=== PATIENT | male | born 1975 | race Caucasian/White ===

== ENCOUNTER 2018-12-13 10:31 | Outpatient (CLI) | payer MEDICAID, SELFPAY ==
[2018-12-13 11:22] LABS: HCT 46.8 % (40.0-50.0); HGB 16.1 g/dL (13.5-17.5); Mean Corp. HGB Concentration 34.4 g/dL (32.0-36.0); Mean Corpuscular Hemoglobin 32.5 pg (27.0-33.0); Mean Corpuscular Volume 94.4 fL (80-95); Mean Platelet Volume 10.4 fL (8.0-11.0); Platelet Count 207 x1000/uL (130-400); RBC 4.96 m/cumm (4.50-6.00); RBC Distribution Width 11.9 % (11.8-14.1); White Blood Cell Count 5.11 k/cumm (4.4-10.8)
[2018-12-13 12:13] LABS: Albumin 3.8 g/dL (3.4-5.0); Alkaline Phosphatase 76 U/L (46-116); Anion Gap 11.1 mmol/L (3-11); BUN 18 mg/dL (7-18); Bilirubin, Total 1.2 mg/dL (0.2-1.0); CO2 27.9 mmol/L (21.0-32.0); CREATININE 1.25 mg/dL (0.70-1.30); Calcium 9.1 mg/dL (8.5-10.1); Chloride 97 mmol/L (98-107); Cholesterol 333 mg/dL (50-200); Glucose 127 mg/dL (70-100); HDL Cholesterol 57 mg/dL (40-60); LDL CHOLESTEROL 99 mg/dL (<100); Potassium 4.4 mmol/L (3.5-5.1); Sodium 136 mmol/L (136-145); Total Protein 7.7 g/dL (6.4-8.2)
[2018-12-13 12:52] LABS: ALT 35 U/L (12-78); AST 47 U/L (15-37); Triglyceride 1621 mg/dL (30-150)
[2018-12-13 15:48] LABS: Hemoglobin A1C 6.1 % (4.5-6.2)
== END 2018-12-13 10:51 ==
PROVIDERS: PCP Family Medicine; Visit Provider Family Medicine
DX: Z00.00 Encounter for general adult medical examination without abnormal findings (principal); E78.1 Pure hyperglyceridemia; R73.9 Hyperglycemia, unspecified
CPT/HCPCS: 36415; 80053; 80061; 83721; 85027; 83036

== ENCOUNTER 2019-05-18 14:54 | Emergency (ER) | payer MEDICAID, SELFPAY ==
[2019-05-18 14:56] VITALS: BP 147/92; PULSE 110; RESP 16; TEMP 36.6; O2SAT 98
--- NOTE | 2019-05-18 15:24 | W.ED.GENAD ---
Discharge Plan Disposition Patient Disposition: HOME Discharge Details Chief Complaint: Nk/Back Pain Clinical Impression: Acute neck pain Primary Care Provider: Aron Cheney ED Provider: Guanaco Pack Home Meds and New Rx's Prescriptions: New cyclobenzaprine 5 mg tablet 5 mg PO BID PRN (Reason: muscle spasm) Qty: 10 RF: 0 No Action multivitamin 1 EACH capsule 1 ea PO DAILY RF: 0 Discharge Instructions Instructions: Neck Pain (ED) Additional Instructions: No more chiropractic manipulations of your spine until cleared by your primary care physician. Please take ibuprofen over the counter. Take 600mg by mouth every 6 hours as needed for pain. Please take acetaminophen (tylenol) - 650mg every 6 hours by mouth as needed for pain. Please contact your primary care physician to arrange follow-up. Return to the ER for any worsening or new concerning symptoms. Referrals: Aron Cheney [Primary Care Provider] - Discharge Data Discharge Date/Time-TO BE ENTERED AT DEPARTURE: 05/18/19 18:55 Medical Decision Making 330p: 43-year-old male presents 2 weeks after chiropractic neck manipulation with persistent and worsening posterior and lateral neck pain despite attempted re-manipulation and adjustment. History concerning for increased pain with swallowing and also left facial paresthesia. Patient does note slightly diminished sensation to light touch left face compared to right. Patient had negative x-ray performed in clinic. Concern for cervical fracture versus less likely arterial injury. Plan to obtain CT imaging. 635p: CT of the cervical spine interpreted by radiology: No acute findings CTA of the neck interpreted by radiology: No acute findings. Results discussed with patient. Usual and customary discharge instructions were provided. I advised the patient should not have any further chiropractic manipulation until cleared by his primary care physician patient was encouraged to follow-up with his primary care physician and return for any worsening or new concerning symptoms. HPI General Mode of arrival: ambulatory. Date/Time Provider Initiated Documentation: 05/18/19 15:07. Limitations to Documentation: no limitations. Information obtained by: patient. HPI Narrative: 43-year-old male presents with chief complaint of neck pain. Patient notes approximately 2 weeks ago he saw his chiropractor for manipulation of his neck. He notes that during neck manipulation and adjustment he had sudden onset of neck pain. Pain is persisted and worsened over the past 2 weeks. He returned to the chiropractor 2 more times and had additional adjustments done that has not helped his symptoms. Patient notes that now he has some pain when he swallowing and when he rotates his head to the right. Pain is moderate to severe. He also notes some tingling of his left face. No associated weakness. No headache. Related Data Home Medications Medication Instructions Recorded Confirmed multivitamin 1 ea PO DAILY 12/22/16 05/18/19 cyclobenzaprine 5 mg PO BID PRN #10 tab 05/18/19 Previous Rx's Medication Instructions Recorded cyclobenzaprine 5 mg PO BID PRN #10 tab 05/18/19 Allergies Allergy/AdvReac Type Severity Reaction Status Date / Time No Known Allergies Allergy Unverified 05/18/19 15:02 General Stated Complaint: Nk/Back Pain JOSLYN: 4 Review of Systems Review of Systems All systems reviewed & are unremarkable except as noted in HPI and below Constitutional Denies headache(s) ENT Denies dizziness and Denies headache(s) Cardiovascular Denies syncope Musculoskeletal Reports as per HPI and Denies tingling Neurologic Denies dizziness, Denies syncope, Denies headache(s), Denies focal weakness, Denies tingling and Reports paresthesias (see hpi) [facility] Surgical History Procedures Tonsillectomy Family History Mother Heart disease Neoplasm Stroke Father No problems noted. Sister No problems noted. Brother No problems noted. Grandmother No problems noted. Social History Smoking/Tobacco Use Status: Former Tobacco Use Second Hand Exposure: Yes Alcohol Intake: current Alcohol Intake frequency: 0-2 drinks per day Alcohol type: wine and hard liquor Substance use type: does not use Caregiver/Support person: No Household members: spouse and family Housing: house Pets and animals: Yes Pets and animals: cat(s) Sexually active: Yes Do you think of yourself as: straight/heterosexual Current gender identity: male What is your relationship status?: How often do you talk on the phone with friends or family?: three or more times per week How often do you get together with friends or relatives?: once per week How often do you attend temple or catholic services?: 4 or more times per year Do you belong to any clubs or organized social groups?: no Panel score (0-1 are the most socially isolated patients): 3 What type of physical activity do you participate in: walking Duration: 15-30 minutes/day Frequency: daily Brittany/Restorationist: Johovah Witness Special brittany needs: Yes (no blood) Do you feel safe at home: Yes Do you feel safe in your relationship?: Yes Exam Const General: cooperative and no acute distress [facility] Head: normocephalic and atraumatic Mouth: moist mucous membranes Eyes Conjunctivae: normal conjunctivae Sclera: normal sclerae EOM: EOM intact bilaterally Neck Neck: trachea midline, supple, tender (Left lateral and posterior) and other (Pain in left neck when he rotates rt) Resp Auscultation: clear to auscultation bilaterally, no rales, no rhonchi and no wheezes Cardio Jugular venous pressure: no JVD Rate: regular rate and not tachycardic Rhythm: regular rhythm GI Palpation: soft, not firm, no guarding, no masses, not rigid and nontender Skin General skin exam: no rashes or lesions noted Neuro General: alert, awake, oriented x3 and tone normal Cranial Nerves: PERRL, EOM intact bilaterally, facial strength normal, tongue midline, able to elevate shoulders bilaterally and other (Patient notes diminished sensation left face to light touch) Cognition: normal cognition Speech: speech normal Gait: normal gait Motor: muscle tone normal throughout and strength 5/5 throughout Sensory Exam: other (See face above otherwise sensation intact bilateral upper and lower ext) Course Vital Signs Temperature 36.6 C 05/18/19 14:56 Pulse 110 H 05/18/19 14:56 Respiratory Rate 16 05/18/19 14:56 Blood Pressure 147/92 H 05/18/19 14:56 Pulse Oximetry 98 05/18/19 14:56 Temperature 36.6 C 05/18/19 14:56 Temperature Source Skin 05/18/19 14:56 Pulse 110 H 05/18/19 14:56 Respiratory Rate 16 05/18/19 14:56 Respiratory Effort Non-Labored 05/18/19 15:00 Blood Pressure 147/92 H 05/18/19 14:56 Blood Pressure Position Sitting 05/18/19 14:56 Pulse Oximetry 98 05/18/19 14:56 Oxygen Delivery Method Room Air 05/18/19 14:56 Oxygen Flow Rate 0 05/18/19 14:56 Pain Level 8 05/18/19 14:56
--- NOTE | 2019-05-18 15:28 | ED.GENADUL_ITS ---
Discharge Plan Disposition Patient Disposition: HOME Discharge Details Chief Complaint: Nk/Back Pain Clinical Impression: Acute neck pain Primary Care Provider: Aron Cheney ED Provider: Guanaco Pack Home Meds and New Rx's Prescriptions: New cyclobenzaprine 5 mg tablet 5 mg PO BID PRN (Reason: muscle spasm) Qty: 10 RF: 0 No Action multivitamin 1 EACH capsule 1 ea PO DAILY RF: 0 Discharge Instructions Instructions: Neck Pain (ED) Additional Instructions: No more chiropractic manipulations of your spine until cleared by your primary care physician. Please take ibuprofen over the counter. Take 600mg by mouth every 6 hours as needed for pain. Please take acetaminophen (tylenol) - 650mg every 6 hours by mouth as needed for pain. Please contact your primary care physician to arrange follow-up. Return to the ER for any worsening or new concerning symptoms. Referrals: Aron Cheney [Primary Care Provider] - Discharge Data Discharge Date/Time-TO BE ENTERED AT DEPARTURE: 05/18/19 18:55 Medical Decision Making 330p: 43-year-old male presents 2 weeks after chiropractic neck manipulation with persistent and worsening posterior and lateral neck pain despite attempted re-manipulation and adjustment. History concerning for increased pain with swallowing and also left facial paresthesia. Patient does note slightly diminished sensation to light touch left face compared to right. Patient had negative x-ray performed in clinic. Concern for cervical fracture versus less likely arterial injury. Plan to obtain CT imaging. 635p: CT of the cervical spine interpreted by radiology: No acute findings CTA of the neck interpreted by radiology: No acute findings. Results discussed with patient. Usual and customary discharge instructions were provided. I advised the patient should not have any further chiropractic manipulation until cleared by his primary care physician patient was encouraged to follow-up with his primary care physician and return for any worsening or new concerning symptoms. HPI General Mode of arrival: ambulatory . Date/Time Provider Initiated Documentation: 05/18/19 15:07 . Limitations to Documentation: no limitations . Information obtained by: patient . HPI Narrative: 43-year-old male presents with chief complaint of neck pain. Patient notes approximately 2 weeks ago he saw his chiropractor for manipulation of his neck. He notes that during neck manipulation and adjustment he had sudden onset of neck pain. Pain is persisted and worsened over the past 2 weeks. He returned to the chiropractor 2 more times and had additional adjustments done that has not helped his symptoms. Patient notes that now he has some pain when he swallowing and when he rotates his head to the right. Pain is moderate to severe. He also notes some tingling of his left face. No associated weakness. No headache. Related Data Home Medications Medication Instructions Recorded Confirmed multivitamin 1 ea PO DAILY 12/22/16 05/18/19 cyclobenzaprine 5 mg PO BID PRN #10 tab 05/18/19 Previous Rx's Medication Instructions Recorded cyclobenzaprine 5 mg PO BID PRN #10 tab 05/18/19 Allergies Allergy/AdvReac Type Severity Reaction Status Date / Time No Known Allergies Allergy Unverified 05/18/19 15:02 General Stated Complaint: Nk/Back Pain JOSLYN: 4 Review of Systems Review of Systems All systems reviewed & are unremarkable except as noted in HPI and below Constitutional Denies headache(s) ENT Denies dizziness and Denies headache(s) Cardiovascular Denies syncope Musculoskeletal Reports as per HPI and Denies tingling Neurologic Denies dizziness, Denies syncope, Denies headache(s), Denies focal weakness, Denies tingling and Reports paresthesias (see hpi) [facility] Surgical History Procedures Tonsillectomy Family History Mother Heart disease Neoplasm Stroke Father No problems noted. Sister No problems noted. Brother No problems noted. Grandmother No problems noted. Social History Smoking/Tobacco Use Status: Former Tobacco Use Second Hand Exposure: Yes Alcohol Intake: current Alcohol Intake frequency: 0-2 drinks per day Alcohol type: wine and hard liquor Substance use type: does not use Caregiver/Support person: No Household members: spouse and family Housing: house Pets and animals: Yes Pets and animals: cat(s) Sexually active: Yes Do you think of yourself as: straight/heterosexual Current gender identity: male What is your relationship status?: How often do you talk on the phone with friends or family?: three or more times per week How often do you get together with friends or relatives?: once per week How often do you attend hinduism or yarsanism services?: 4 or more times per year Do you belong to any clubs or organized social groups?: no Panel score (0-1 are the most socially isolated patients): 3 What type of physical activity do you participate in: walking Duration: 15-30 minutes/day Frequency: daily Brittany/Mosque: Johovah Witness Special brittany needs: Yes (no blood) Do you feel safe at home: Yes Do you feel safe in your relationship?: Yes Exam Const General: cooperative and no acute distress [facility] Head: normocephalic and atraumatic Mouth: moist mucous membranes Eyes Conjunctivae: normal conjunctivae Sclera: normal sclerae EOM: EOM intact bilaterally Neck Neck: trachea midline, supple, tender (Left lateral and posterior) and other (Pain in left neck when he rotates rt) Resp Auscultation: clear to auscultation bilaterally, no rales, no rhonchi and no wheezes Cardio Jugular venous pressure: no JVD Rate: regular rate and not tachycardic Rhythm: regular rhythm GI Palpation: soft, not firm, no guarding, no masses, not rigid and nontender Skin General skin exam: no rashes or lesions noted Neuro General: alert, awake, oriented x3 and tone normal Cranial Nerves: PERRL, EOM intact bilaterally, facial strength normal, tongue midline, able to elevate shoulders bilaterally and other (Patient notes diminished sensation left face to light touch) Cognition: normal cognition Speech: speech normal Gait: normal gait Motor: muscle tone normal throughout and strength 5/5 throughout Sensory Exam: other (See face above otherwise sensation intact bilateral upper and lower ext) Course Vital Signs Temperature 36.6 C 05/18/19 14:56 Pulse 110 H 05/18/19 14:56 Respiratory Rate 16 05/18/19 14:56 Blood Pressure 147/92 H 05/18/19 14:56 Pulse Oximetry 98 05/18/19 14:56 Temperature 36.6 C 05/18/19 14:56 Temperature Source Skin 05/18/19 14:56 Pulse 110 H 05/18/19 14:56 Respiratory Rate 16 05/18/19 14:56 Respiratory Effort Non-Labored 05/18/19 15:00 Blood Pressure 147/92 H 05/18/19 14:56 Blood Pressure Position Sitting 05/18/19 14:56 Pulse Oximetry 98 05/18/19 14:56 Oxygen Delivery Method Room Air 05/18/19 14:56 Oxygen Flow Rate 0 05/18/19 14:56 Pain Level 8 05/18/19 14:56
[2019-05-18 15:54] LABS: Anion Gap 11.2 mmol/L (3-11); BUN 17 mg/dL (7-18); CO2 27.8 mmol/L (21.0-32.0); Calcium 8.7 mg/dL (8.5-10.1); Chloride 94 mmol/L (98-107); Glucose 190 mg/dL (70-100); Potassium 4.7 mmol/L (3.5-5.1); Sodium 133 mmol/L (136-145)
[2019-05-18 16:15] LABS: CREATININE 0.97 mg/dL (0.70-1.30)
--- NOTE | 2019-05-18 17:15 | DI.CT_ITS ---
SYMPTOM/DIAGNOSIS: NECK PAIN, THROBBING, LEFT FACIAL PARESTHESIA CT ANGIOGRAPHY NECK: CT angiography was performed with multi slice acquisition and multi planar and 3D reconstruction. There is no evidence of carotid or vertebral stenosis, occlusion or dissection. No plaque is seen. IMPRESSION: Negative CT angiography of the neck.
--- NOTE | 2019-05-18 17:15 | DI.CT_ITS ---
SYMPTOM/DIAGNOSIS: LEFT POST NECK PAIN, LEFT FACIAL PARESTHESIA CT CERVICAL SPINE: There is no evidence of fracture or subluxation. There are no significant degenerative changes. There is no visible disc herniation. There is no prevertebral soft tissue swelling. IMPRESSION: Negative CT of the cervical spine.
[2019-05-18] MEDS: Omnipaque 350 MG/ML 100 ML BTL IJ (17:17)
--- NOTE | 2019-05-18 17:32 | DI.VRAD_ITS ---
EXAM: CT Cervical Spine Without Contrast EXAM DATE/TIME: 05/18/2019 3:24 PM CLINICAL HISTORY: 43 years old, male; Patient HX: Left posterior neck pain, left facial paresthesia TECHNIQUE: Imaging protocol: Axial computed tomography images of the cervical spine without contrast. Coronal and sagittal reformatted images were created and reviewed. COMPARISON: No relevant prior studies available. FINDINGS: Vertebrae: No acute fracture. Normal alignment. Discs/Spinal canal/Neural foramina: No spinal stenosis. No neural foraminal narrowing. Soft tissues: Unremarkable. Lungs: Lung apices are normal. IMPRESSION: No acute findings. Dictated and Authenticated by: Jamey Rajput MD. Ordering:AYSE Blanc MD
--- NOTE | 2019-05-18 17:34 | DI.VRAD_ITS ---
EXAM: CT Angiography Neck With Contrast EXAM DATE/TIME: 05/18/2019 3:24 PM CLINICAL HISTORY: 43 years old, male; Other: Left posterior neck pain, throbbing, left facial pareshesia; Patient HX: Neck pain started after chiropractor manipulation TECHNIQUE: Imaging protocol: Axial computed tomographic angiography images of the neck with intravenous contrast using CT angiography protocol. Coronal and sagittal reformatted images were created and reviewed. 3D rendering: MIP reconstructed images were created and reviewed. Contrast material: OMNIPAQUE 350; Contrast volume: 85 ml; Contrast route: IV; COMPARISON: No relevant prior studies available. FINDINGS: VASCULATURE: Right common carotid artery: Unremarkable. No stenosis. No dissection or occlusion. Right internal carotid artery: Unremarkable. No stenosis in the extracranial segment. No dissection or occlusion. Right external carotid artery: Unremarkable. No occlusion or stenosis. Right vertebral artery: Unremarkable. No stenosis. No dissection or occlusion. Left common carotid artery: Unremarkable. No stenosis. No dissection or occlusion. Left internal carotid artery: Unremarkable. No stenosis in the extracranial segment. No dissection or occlusion. Left external carotid artery: Unremarkable. No stenosis. No dissection or occlusion. Left vertebral artery: Unremarkable. No stenosis. No dissection or occlusion. NECK: Bones/joints: No acute fracture. Soft tissues: Normal. No significant soft tissue swelling. IMPRESSION: No acute findings. COMMENT: Reference per NASCET criteria for degree of stenosis: Mild: less than 50% stenosis. Moderate: 50-69% stenosis. Severe: 70-94% stenosis. Near occlusion: 95-99% stenosis. Dictated and Authenticated by: Jamey Rajput MD. Ordering:AYSE Blanc MD
[2019-05-18 18:46] VITALS: BP 147/92; PULSE 110; RESP 16; TEMP 36.6; O2SAT 98
[2019-05-18 18:54] VITALS: BP 138/86; PULSE 96; RESP 16; O2SAT 98
== END 2019-05-18 18:55 | disposition home or self-care (01) ==
PROVIDERS: Emergency Provider Student in an Organized Health Care Education/Training Program; PCP Family Medicine
DX: M54.2 Cervicalgia (principal); R20.2 Paresthesia of skin
CPT/HCPCS: 36415; 70498; 80048; 99285; 72125; 99284; J3490

== ENCOUNTER 2020-08-08 09:37 | Outpatient (REF) | payer MEDICAID, SELFPAY ==
[2020-08-08 19:21] LABS: ALT 85 U/L (16-63); AST 72 U/L (15-37); Albumin 3.9 g/dL (3.4-5.0); Alkaline Phosphatase 94 U/L (46-116); Anion Gap 10.4 mmol/L (3-11); BUN 14 mg/dL (7-18); Bilirubin, Total 0.8 mg/dL (0.2-1.0); CO2 24.6 mmol/L (21.0-32.0); CREATININE 1.04 mg/dL (0.70-1.30); Chloride 102 mmol/L (98-107); Cholesterol 259 mg/dL (<200); Glucose 127 mg/dL (74-106); HDL Cholesterol 42 mg/dL (40-60); Potassium 4.1 mmol/L (3.5-5.1); Sodium 137 mmol/L (136-145); Triglyceride 749 mg/dL (<150)
[2020-08-08 19:39] LABS: LDL CHOLESTEROL 109 mg/dL (<100)
== END 2020-08-08 09:57 ==
LOC: NCHCN 09:37
PROVIDERS: Visit Provider Physician Assistant
DX: Z13.228 Encounter for screening for other metabolic disorders (principal); Z13.220 Encounter for screening for lipoid disorders; Z00.00 Encounter for general adult medical examination without abnormal findings
CPT/HCPCS: 80053; 80061; 83721

== ENCOUNTER 2020-10-08 11:41 | Emergency (ER) | payer MEDICAID, SELFPAY ==
[2020-10-08 11:45] VITALS: BP 123/79; PULSE 68; RESP 16; TEMP 36.4; O2SAT 98
--- NOTE | 2020-10-08 11:45 | DI.RAD_ITS ---
EXAM: XR HAND RT COMPLETE CLINICAL HISTORY: Thumb dislocation and reduced, pain. TECHNIQUE: 2D digital imaging was performed. COMPARISON: CR RIGHT HAND COMPLETE from 09/30/2010 FINDINGS: BONES: No acute fracture is present. No bony destructive lesion is seen. Periarticular spurring is se en at the interphalangeal joint of the thumb. JOINTS: No dislocation present. SOFT TISSUE: Normal. IMPRESSION: No acute fracture or dislocation. DATA REPOSITORY: RADIATION DOSE DELIVERED:
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
[2020-10-08 13:33] VITALS: BP 123/79; PULSE 68; RESP 16; TEMP 36.4; O2SAT 98
== END 2020-10-08 13:33 | disposition home or self-care (01) ==
PROVIDERS: Emergency Provider Physician Assistant; PCP Physician Assistant
DX: S69.91XA Unspecified injury of right wrist, hand and finger(s), initial encounter (principal); W20.8XXA Other cause of strike by thrown, projected or falling object, initial encounter
CPT/HCPCS: 29125; 99283; 73130

== ENCOUNTER 2020-10-16 01:00 | Outpatient (CLI) | payer MEDICAID, SELFPAY ==
--- NOTE | 2020-10-16 | DI.RAD_ITS ---
EXAM: XR LUMBAR SPINE COMPLETE CLINICAL HISTORY: LOW BACK PAIN,M54.5,PROGRESSIVE LLE RADICULOPATHY. TECHNIQUE: 2D digital imaging was performed. COMPARISON: No exams were available for comparison FINDINGS: BONES: No fracture or destructive lesion. Vertebral bodies are unremarkable. No facet hypertrophy nadiya ntified. Small endplate osteophytes are seen at L4-5 and L5-S1. DISKS: Mild disc space narrowing is seen at L4-5 and L5-S1. ALIGNMENT: Lumbar spinal alignment is within normal limits. No spondylolysis or spondylolisthesis. SOFT TISSUE: Normal. IMPRESSION: Mild degenerative changes in the lower lumbar spine as described above. DATA REPOSITORY: RADIATION DOSE DELIVERED:
--- NOTE | 2020-10-16 08:32 | DI.MRI_ITS ---
EXAM: MR LUMBAR SPINE WO CLINICAL HISTORY: CHRONIC LOW BACK PAIN,M54.5,PROGRESSIVE LLE RADICULOPATHY. TECHNIQUE: Multiplanar multisequence MRI of the Lumbar spine was performed. COMPARISON: CR XR LUMBAR SPINE COMPLETE from 10/16/2020 FINDINGS: Bones: The last intervertebral disc space is designated the L5/S1 level for the numbering purpose of this examination. The vertebral body heights are well maintained. Alignment is satisfactory. Mild d egenerative endplate signal changes are seen at L4-5 and L5-S1. Note is made of a hemangioma or fatty rest in the T12 vertebral body. Cord: The conus tip ends at the T12 level. It is of normal size and signal intensity. T12-L1: No disc herniations or bulges are present. No central spinal canal or neural foraminal stenos is. L1-2: No disc herniations or bulges are present. No central spinal canal or neural foraminal stenosis . L2-3: No disc herniations or bulges are present. No central spinal canal or neural foraminal stenosis . L3-4: No disc herniations or bulges are present. No central spinal canal or neural foraminal stenosis . L4-5: There is loss of signal of the disc. There is a diffuse disc bulge present. There is a small left paracentral disc herniation causing left lateral recess stenosis. There is a impression upon th e left L5 nerve root. Minimal narrowing of the central spinal canal is noted. No significant neural foraminal stenosis is present. L5-S1: There is a diffuse disc bulge. There is a small central disc herniation. No significant cent ral spinal canal stenosis or nerve root compression is noted. No neural foraminal stenosis is presen t. Soft tissues: The visualized SI joints and sacrum are well maintained. The paraspinal soft tissues ar e unremarkable. IMPRESSION: 1. At L4-L5, there is a left paracentral disc herniation causing left lateral recess stenosis and com pression upon the left L5 nerve root. 2. Small central disc herniation at L5-S1 but no significant central spinal canal stenosis or nerve r oot compression is present. 3. Degenerative disc disease at L4-5 and L5-S1. DATA REPOSITORY:
== END 2020-10-16 01:20 ==
PROVIDERS: PCP Physician Assistant; Visit Provider Physician Assistant
DX: M51.26 Other intervertebral disc displacement, lumbar region (principal); M47.816 Spondylosis without myelopathy or radiculopathy, lumbar region
CPT/HCPCS: 72110; 72148

== ENCOUNTER 2021-04-07 15:25 | Outpatient (REF) | payer MEDICAID, SELFPAY ==
[2021-04-07 16:22] LABS: Hemoglobin A1C 5.8 % (<5.7)
[2021-04-07 16:30] LABS: ALT 37 U/L (16-63); AST 22 U/L (15-37); Albumin 4.4 g/dL (3.4-5.0); Alkaline Phosphatase 91 U/L (46-116); Anion Gap 10.1 mmol/L (3-11); BUN 15 mg/dL (7-18); Bilirubin, Total 1.1 mg/dL (0.2-1.0); CO2 28.9 mmol/L (21.0-32.0); CREATININE 1.1 mg/dL (0.70-1.30); Calcium 9.6 mg/dL (8.5-10.1); Calculated LDL 125 mg/dL (<100); Chloride 103 mmol/L (98-107); Cholesterol 203 mg/dL (<200); Glucose 133 mg/dL (74-106); HDL Cholesterol 39 mg/dL (40-60); Potassium 4.2 mmol/L (3.5-5.1); Sodium 142 mmol/L (136-145); Total Protein 7.8 g/dL (6.4-8.2); Triglyceride 196 mg/dL (<150)
== END 2021-04-07 15:26 | disposition home or self-care (01) ==
LOC: NCHCN 15:25
PROVIDERS: PCP Physician Assistant; Visit Provider Physician Assistant
DX: R73.03 Prediabetes (principal); E78.1 Pure hyperglyceridemia
CPT/HCPCS: 80053; 80061; 83036

== ENCOUNTER 2021-06-04 11:24 | Outpatient (REF) | payer MEDICAID, SELFPAY ==
[2021-06-04 14:50] LABS: Abs Immature Grans 0.04 10^3/uL (0.0-0.06); Absolute Basophil Count 0.02 10^3/uL (0.0-0.2); Absolute Eosinophil Count 0.11 10^3/uL (0.0-0.7); Absolute Lymphocyte Count 0.74 10^3/uL (1.2-3.4); Absolute Monocyte Count 0.27 10^3/uL (0.1-0.8); Absolute Neutrophil Count 5.39 10^3/uL (1.2-6.7); Basophils % 0.3; Eosinophils % 1.7; HGB 12.2 g/dL (13.5-17.5); Immature Grans % 0.6; Lymphocytes % 11.3; MCH 29.6 pg (27.0-33.0); MCHC 31.3 % (32.0-36.0); MCV 94.7 fL (80-95); MPV 10.4 fL (8.0-11.0); Monocytes % 4.1; Nucleated RBC 0 %; Platelet Count 328 10^3/uL (130-400); RBC 4.12 10^6/uL (4.36-5.78); RDW 12.6 % (11.8-14.1); RDW-SD 43.8 fL; WBC 6.57 10^3/uL (4.4-10.8)
[2021-06-05 11:20] LABS: Lyme Ab w Rflx to Lyme Confirm Positive (Negative)
[2021-06-06 11:51] LABS: COVID-19 RT-PCR UVMMC Result Negative (Negative)
[2021-06-06 13:08] LABS: Anaplasma phagocytophilum Negative (Negative); B. miyamotoi PCR Negative (Negative); Babesia divergens/MO-1 Negative (Negative); Babesia duncani Negative (Negative); Babesia microti Negative (Negative); Ehrlichia chaffeensis Negative (Negative); Ehrlichia ewingii/canis Negative (Negative); Ehrlichia muris eauclairensis Negative (Negative)
[2021-06-09 15:41] LABS: IgG Band(s) p41; IgG Immunoblot Negative (Negative); IgM Band(s) p41; IgM Immunoblot Positive (Negative)
== END 2021-06-04 11:25 | disposition home or self-care (01) ==
LOC: LBN 11:24
PROVIDERS: PCP Physician Assistant; Visit Provider Physician Assistant Medical
DX: R50.9 Fever, unspecified (principal); J06.9 Acute upper respiratory infection, unspecified; Z20.822 Contact with and (suspected) exposure to COVID-19
CPT/HCPCS: 86617; 87798; U0003; 85025; 86618

== ENCOUNTER 2021-06-05 15:47 | Outpatient (CLI) | payer MEDICAID, SELFPAY ==
--- NOTE | 2021-06-05 | DI.RAD_ITS ---
Exam(s) XR CHEST 2V PA LATERAL EXAM: XR CHEST 2V PA LATERAL CLINICAL HISTORY: COUGH R05 TECHNIQUE: 2D digital imaging was performed. COMPARISON: CR CHEST 2 VIEWS PA,LAT from 02/01/2017 FINDINGS: MEDIASTINUM: Normal. HEART: Normal. PULMONARY VASCULATURE: Normal. LUNGS: Suboptimally inflated on the PA view but clear. PLEURAL SPACE: No pleural effusion or pneumothorax. BONE:Unremarkable for age. IMPRESSION: No acute abnormality. DATA REPOSITORY: RADIATION DOSE DELIVERED:
== END 2021-06-05 16:07 ==
PROVIDERS: PCP Physician Assistant; Visit Provider Physician Assistant Medical
DX: R05 Cough (principal)
CPT/HCPCS: 71046

== ENCOUNTER 2021-10-27 08:58 | Outpatient (REF) | payer MEDICAID, SELFPAY ==
[2021-10-27 14:46] LABS: Hemoglobin A1C 5.6 % (<5.7)
[2021-10-27 14:50] LABS: ALT 33 U/L (16-63); AST 24 U/L (15-37); Albumin 4.5 g/dL (3.4-5.0); Alkaline Phosphatase 81 U/L (46-116); Anion Gap 11.2 mmol/L (3-11); BUN 17 mg/dL (7-18); CO2 27.8 mmol/L (21.0-32.0); CREATININE 1.2 mg/dL (0.70-1.30); Calcium 9.6 mg/dL (8.5-10.1); Chloride 101 mmol/L (98-107); Cholesterol 298 mg/dL (<200); Glucose 129 mg/dL (74-106); HDL Cholesterol 65 mg/dL (40-60); Potassium 4.1 mmol/L (3.5-5.1); Sodium 140 mmol/L (136-145); Triglyceride 421 mg/dL (<150)
[2021-10-27 15:17] LABS: LDL CHOLESTEROL 154 mg/dL (<100)
[2021-10-27 15:26] LABS: Uric Acid 8.8 mg/dL (3.5-7.2)
== END 2021-10-27 08:59 | disposition home or self-care (01) ==
LOC: NCHCN 08:58
PROVIDERS: PCP Physician Assistant; Visit Provider Physician Assistant
DX: R73.03 Prediabetes (principal); E78.1 Pure hyperglyceridemia; M13.88 Other specified arthritis, other site
CPT/HCPCS: 80053; 80061; 83721; 83036; 84550

== ENCOUNTER 2022-11-05 15:39 | Outpatient (REF) | payer MEDICAID, SELFPAY ==
[2022-11-05 16:45] LABS: ALT 44 U/L (16-63); AST 37 U/L (15-37); Albumin 4.3 g/dL (3.4-5.0); Alkaline Phosphatase 74 U/L (46-116); Anion Gap 10.9 mmol/L (3-11); BUN 17 mg/dL (7-18); Bilirubin, Total 1.4 mg/dL (0.2-1.0); CO2 27.1 mmol/L (21.0-32.0); CREATININE 1.3 mg/dL (0.70-1.30); Calcium 9.2 mg/dL (8.5-10.1); Chloride 100 mmol/L (98-107); Cholesterol 265 mg/dL (<200); Estimated GFR 68.19 (mL/min/1.73m2); Glucose 150 mg/dL (74-106); HDL Cholesterol 50 mg/dL (40-60); Potassium 4.2 mmol/L (3.5-5.1); Sodium 138 mmol/L (136-145); Total Protein 7.9 g/dL (6.4-8.2); Triglyceride 713 mg/dL (<150)
[2022-11-05 16:57] LABS: LDL CHOLESTEROL 111 mg/dL (<100)
== END 2022-11-05 15:40 | disposition home or self-care (01) ==
LOC: NCHCN 15:39
PROVIDERS: PCP Physician Assistant; Visit Provider Physician Assistant
DX: R73.03 Prediabetes (principal); E78.1 Pure hyperglyceridemia
CPT/HCPCS: 80053; 80061; 83721; 83036

== ENCOUNTER 2023-08-11 16:32 | Outpatient (REF) | payer MEDICAID, SELFPAY ==
[2023-08-11 20:19] LABS: HCT 45.9 % (40.0-50.0); HGB 15.7 g/dL (13.5-17.5); MCH 30.4 pg (27.0-33.0); MCHC 34.2 % (32.0-36.0); MCV 89 fL (80-95); MPV 11.5 fL (8.0-11.0); Platelet Count 234 10^3/uL (130-400); RBC 5.17 10^6/uL (4.36-5.78); RDW 11.9 % (11.8-14.1); RDW-SD 39.2 fL; WBC 5.79 10^3/uL (4.4-10.8)
[2023-08-11 20:21] LABS: ESR 14 mm/hr (0-15)
[2023-08-11 20:47] LABS: Hemoglobin A1C 5.9 % (<5.7)
[2023-08-11 20:49] LABS: ALT 42 U/L (16-63); AST 28 U/L (15-37); Albumin 4.3 g/dL (3.4-5.0); Alkaline Phosphatase 82 U/L (46-116); BUN 25 mg/dL (7-18); Bilirubin, Total 1.1 mg/dL (0.2-1.0); CREATININE 1.2 mg/dL (0.70-1.30); Calcium 9.1 mg/dL (8.5-10.1); Calculated LDL 131 mg/dL (<100); Chloride 103 mmol/L (98-107); Cholesterol 210 mg/dL (<200); Glucose 149 mg/dL (74-106); HDL Cholesterol 36 mg/dL (40-60); Potassium 3.7 mmol/L (3.5-5.1); Sodium 139 mmol/L (136-145); TSH 1.56 uIU/mL (0.36-3.74); Total Protein 7.5 g/dL (6.4-8.2); Triglyceride 217 mg/dL (<150)
[2023-08-11 21:13] LABS: FREE T4 1.03 ng/dL (0.76-1.46)
== END 2023-08-11 16:33 | disposition home or self-care (01) ==
LOC: NCHCN 16:32
PROVIDERS: PCP Physician Assistant; Visit Provider Physician Assistant
DX: R53.83 Other fatigue (principal)
CPT/HCPCS: 80053; 80061; 85027; 85652; 83036; 84439; 84443

== ENCOUNTER → 2024-04-17 04:32 | Outpatient (CLI) | payer MEDICAID, SELFPAY ==
--- NOTE | 2024-04-17 08:25 | DI.MRI_ITS ---
Exam(s) MR LUMBAR SPINE WO EXAM: MR LUMBAR SPINE WO CLINICAL HISTORY: LOW BACK PAIN, M54.50. TECHNIQUE: Multiplanar multisequence MRI of the Lumbar spine was performed. COMPARISON: CR XR LUMBAR SPINE COMPLETE from 10/16/2020 MR MR LUMBAR SPINE WO from 10/16/2020 FINDINGS: Conus medullaris is at normal level. There is no evidence of conus mass nor subjacent clumping of in trathecal nerve roots to suggest arachnoiditis. The distal thecal sac appears unremarkable.There is no evidence of Tarlov intrasacral cysts nor other significant findings within the sacral canal Bones:There are no fractures nor ominous osseous lesions in the lumbar vertebral bodies and visualize d sacrum. With respect to the individual levels... T12-L1: Unremarkable L1-2: Normal disc height and signal. No disc herniation nor central canal stenosis.No foraminal steno sis L2-3: Normal disc height. No disc herniation nor central canal stenosis.No foraminal stenosis.No face t arthropathy. L3-4: Normal disc height but slight loss of hydration signal when compared to prior MRI scan of 2019. In addition, there is now annular bulging in the floor of the exiting right neural foramen , not previously present. This extends posteriorly approximately 3 mm. However, there does not appe ar to be significant impingement upon the exiting right-sided nerve root at this level. There is no central canal stenosis and no findings in the opposite-exiting left neural foramen. Facet joints at this level appear unremarkable. L4-5: This level exhibits minimal disc height loss. The previously present left paracentral disc her niation at this level has somewhat decreased in size. There is persistent annular bulging but withou t a superimposed disc protrusion at this time. No central canal stenosis. There is no significant f oraminal stenosis. Facet joints at this level appear unremarkable. L5-S1: The previously described central subligamentous disc bulge appears unchanged from the previous MRI. There is no central canal stenosis. No significant foraminal stenosis. Minimal degenerative facet joint changes. Soft tissues: paraspinal soft tissues appear unremarkable. IMPRESSION: 1. Compared to the prior MRI scan of 10/16/2028 the disc protrusion at L4-5 has decreased in size and the central annular bulging at L5-S1 level appears unchanged and is not associated with canal stenos is. 2. The main new finding here is lateral right annular bulging at the level of the exiting right neura l foramen at L3-4 level. However, there is no obvious foraminal stenosis evident. DATA REPOSITORY:
== END ==
PROVIDERS: PCP Physician Assistant; Visit Provider Physician Assistant
DX: M54.50 Low back pain, unspecified (principal)
CPT/HCPCS: 72148